=== PATIENT | male | born 1990 | race Caucasian/White ===

== ENCOUNTER 2020-08-28 07:09 | Day surgery (SDC) | payer OTHER ==
[~2020-08-28] VITALS: Ht 176.5 cm; Wt 129.3 kg
[~2020-08-28 07:09] MED LIST: AMLO1TAB25 PO; ARIP1TAB PO; ATOR1TAB19 PO; BASA100I SC; BUSP5TA PO; CHLO25TA PO; CLON0.5T17 PO; CVS1CAP2 PO; DEXI60CA2 PO; GLYB5TAB6 PO; HYDR-3363 PO; LIDOCAINE 1% MDV 20ML VIAL SQ PRN; LORA-243 PO; LR 1,000 ML IV ONE; MIRA3350 PO; MM S100C PO; PARO40TA3 PO; PARO5TAB PO; POTA1TAB14 PO; STEG15TA PO; THERTAB52 PO; TRAZ-252 PO; ZOFR4TAB16 PO; ceFAZolin SOD 2 GM in IV 1 EA IV ONE
[2020-08-28] MEDS ORDERED: LIDOCAINE 2% 100MG/5ML SDV (FOR ANES.) As Ordered ONE (07:16)
[2020-08-28] MEDS ORDERED: ONDANSETRON 4MG/2ML VIAL As Ordered ONE ×2 (07:16→11:01)
[2020-08-28] MEDS ORDERED: dexameTHASONE 4 MG/ML 1ML VIAL (J1100 PER 1MG) As Ordered ONE (07:16)
[2020-08-28] MEDS ORDERED: propofoL 200 MG/20 ML VIAL As Ordered ONE (07:16)
[2020-08-28] MEDS ORDERED: fentaNYL 250 MCG/5 ML INJECTION (J3010) As Ordered ONE (07:16)
[2020-08-28] MEDS ORDERED: MIDAZOLAM INJ 2MG/2ML VIAL (J2250 PER 1MG) As Ordered ONE ×2 (07:17→08:45)
[2020-08-28] MEDS ORDERED: BACITRACIN OINTMENT 30GM TUBE As Ordered ONE (08:54)
[2020-08-28] MEDS ORDERED: LIDOCAINE 1% MDV 20ML VIAL As Ordered ONE (08:54)
[2020-08-28] MEDS ORDERED: LIDOCAINE 5% OINT 30GM TUBE As Ordered ONE (08:54)
[2020-08-28] MEDS ORDERED: BUPIVACAINE HCL 0.25% 30ML VIAL As Ordered ONE (09:40)
[2020-08-28] MEDS ORDERED: ROCURONIUM BROMIDE 50 MG/5 ML VIAL As Ordered ONE (09:47)
[2020-08-28] MEDS ORDERED: SUGAMMADEX SODIUM 500 MG/5 ML VIAL (BRIDION) As Ordered ONE (09:48)
[2020-08-28] MEDS ORDERED: fentaNYL 100 MCG/2 ML INJECTION (J3010) As Ordered ONE (11:01)
[2020-08-28] MEDS: fentaNYL 100 MCG/2 ML INJECTION (J3010) IV PRN ×2 (11:08→11:24)
[2020-08-28] MEDS ORDERED: KETOROLAC 30 MG/ML 1ML VIAL As Ordered ONE (11:17)
[2020-08-28] MEDS ORDERED: HumaLOG INSULIN (NovoLOG) PER UNIT As Ordered ONE (11:19)
[2020-08-28] MEDS ORDERED: ONDANSETRON 4MG/2ML VIAL IV PRN (11:30)
[2020-08-28] MEDS ORDERED: HumaLOG INSULIN (NovoLOG) PER UNIT SC ONE (11:30)
[2020-08-28] MEDS ORDERED: METOCLOPRAMIDE INJ 10MG/2ML VIAL (J2765 PER 1) IV PRN (11:30)
[2020-08-28] MEDS ORDERED: LR 1,000 ML IV SCH (11:30)
[2020-08-28] MEDS ORDERED: KETOROLAC 30 MG/ML 1ML VIAL IV PRN (11:30)
[2020-08-28] MEDS: PERCOCET 5MG/325MG TAB PO PRN ×2 (11:31→12:05)
[2020-08-28] MEDS ORDERED: KETOROLAC TROMETHAMINE 10 MG TAB PO PRN (11:45)
--- NOTE | 2020-08-28 12:10 | ROOPDOC ---
[facility] Report Of Operation Report of Operation DATE OF PROCEDURE: 08/28/20 PREPROCEDURE DIAGNOSES: Phimosis POSTPROCEDURE DIAGNOSES: Phimosis PROCEDURE: Circumcision SURGEON: Andrey Pelayo MD JOB ESTIMATOR: None ANESTHESIA: Gen. ESTIMATED BLOOD LOSS: Approximately 5 mL. COMPLICATIONS: None REMARKS: See description PROCEDURE NOTE: Vinicius was brought to the operating room for circumcision because of persistent inability to retract foreskin. DESCRIPTION OF PROCEDURE: Patient was placed on table in the supine position, given general anesthesia, prepped with Betadine paint and draped in a sterile manner. Timeout was then performed. The foreskin was forcibly retracted and cleansed with Betadine. The foreskin was then reduced. The lateral edges were clamped with mosquito clamps and the coronal edge was marked with a marking pen. A straight hemostat was then used to make a dorsal and ventral clamp line and decisions are made along these lines until the desired amount of foreskin was incised. The redundant foreskin was then removed with curved Dupree's. Hemostasis was achieved with cauterization and 3-0 chromic ties. The skin edges were then approximated with interrupted 3-0 chromic sutures. Penis is then anesthetized a car percent Marcaine without epinephrine and a bacitracin and Xeroform dressing was applied and the dressing was applied. The patient was then awakened and sent to recovery in stable condition having tolerated procedure well. ANDREY PELAYO MD Aug 28, 2020 12:10
[2020-08-28 12:30] VITALS: BP 149/88
== END 2020-08-28 13:00 | disposition home or self-care (01) ==
LOC: M SDC 07:09
PROVIDERS: ATTEND Urology
DX: N47.1 Phimosis (principal); E10.9 Type 1 diabetes mellitus without complications; I10 Essential (primary) hypertension; E78.5 Hyperlipidemia, unspecified; K21.9 Gastro-esophageal reflux disease without esophagitis; F90.9 Attention-deficit hyperactivity disorder, unspecified type; F41.9 Anxiety disorder, unspecified; F32.9 Major depressive disorder, single episode, unspecified; L40.9 Psoriasis, unspecified; E66.9 Obesity, unspecified; Z79.4 Long term (current) use of insulin; Z79.899 Other long term (current) drug therapy
CPT/HCPCS: 54161; 88304; J0690; J1100; J1885; J2250; J2405; J3010

== ENCOUNTER → 2024-11-02 | Outpatient (REF) ==
[~2024-11-02] MED LIST changes: +ARIP10TA63 PO; -ARIP1TAB PO; -LIDOCAINE 1% MDV 20ML VIAL SQ PRN; -LR 1,000 ML IV ONE; +POTA-298 PO; -POTA1TAB14 PO; -ceFAZolin SOD 2 GM in IV 1 EA IV ONE
== END ==
LOC: M PLAIMG 14:26
PROVIDERS: ATTEND Internal Medicine
DX: R52 Pain, unspecified (principal)